=== PATIENT | female | born 1960 | race Caucasian/White ===

== ENCOUNTER → 2016-12-21 | Outpatient (CLI) | payer MEDICAID | LOC: BRMIMAGING 14:40 | PROVIDERS: ATTEND Family Medicine | DX: Z12.31 Encounter for screening mammogram for malignant neoplasm of breast (principal) | CPT/HCPCS: G0202 ==

== ENCOUNTER → 2017-04-06 | Outpatient (CLI) | payer MEDICAID | LOC: CIMAGING 14:50 | PROVIDERS: ATTEND Family Medicine | DX: R05 Cough (principal); E03.9 Hypothyroidism, unspecified; K63.5 Polyp of colon | CPT/HCPCS: 71046-PO ==